=== PATIENT | male | born 1985 | race Caucasian/White ===

== ENCOUNTER 2023-08-24 00:18 | Inpatient (IN) ==
--- NOTE | 2023-08-24 00:40 | Emergency Department Note ---
History of Present Illness General Chief complaint: Chest Pain Stated complaint: CHEST PAIN,BODY STIFFNESS,SEVERE ABDOMINAL/BACK PA Time Seen by Provider: 08/24/23 00:29 History of Present Illness Maximum Pain Intensity: 9 This 37-year-old male who states he is healthy with no active medical problems presents the ER complaining of epigastric abdominal chest pain tonight and earlier. He had meatloaf for dinner. No alcohol or drug use. Patient denies fever, chills, vomiting, diarrhea, trauma to the area. He runs 4-5 times a week. Home Medications Medication Instructions Recorded Confirmed Type No Known Home Medications 08/24/23 08/24/23 History Allergies Allergy/AdvReac Type Severity Reaction Status Date / Time Penicillins Allergy Rash Verified 12/29/22 08:44 Past Med/Surg History Medical History Gynecomastia No significant past medical history Surgical History S/P medial meniscectomy of right knee S/P wisdom tooth extraction Family History Father Hypertension Acid reflux Sister Acid reflux Denies family history of Colon cancer Ovarian cancer Prostate cancer Myocardial infarction Breast cancer Social History Smoking Status: Never smoker Second Hand Exposure: No; Do You Dip or Chew Tobacco: No; Hx Alcohol Use: No Hx Substance Use: No Preferred Language: Serbian Communication Ability: Effective Visual Impairment: No Limitations Hearing Ability: Normal Internet Application Developer Required: No marital status: Current Living Situation: Spouse Current Living Situation Comment: Spouse and daughter current occupational status: employed 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 How many Children do You have: 1 Feels Safe at Home: Yes Childhood Exposure to Second-Hand Smoke: Yes Diet: regular caffeine: No during the past year weight has: remained stable Dental Care, Regularly: Yes Physical Activity Frequency: 5-6 Times per Week Seatbelt Use: always Sunscreen Use: Yes Assistive Devices: Contacts Review of Systems A total of 10 systems reviewed and were otherwise negative Physical Exam Vital Signs Vital Signs - 24 hr 08/24/23 00:23 08/24/23 00:55 08/24/23 00:55 Temperature 36.4 C L Temperature Source Oral Pulse Rate 51 L 48 L Pulse Rhythm Regular Regular Pulse Strength Normal Respiratory Rate 18 18 Respiratory Effort / Characteristics Non-Labored Spontaneous Respiratory Depth Normal Respiratory Pattern Regular Blood Pressure 122/78 Blood Pressure Mean 92 Blood Pressure Position Sitting Pulse Oximetry 97 99 99 Oxygen Delivery Method Room Air Room Air Room Air Oxygen Flow Rate 0 Sepsis Recent Fever Within 48 Hours No Sepsis New/Unexplained Change in Mental Status No Sepsis Action Taken by Nursing No Action Required VITALS: Vitals are noted on the nurse's note and reviewed by myself. Vital signs stable. GENERAL: Pleasant gentleman, in no acute distress, nondiaphoretic, well- developed well-nourished. SKIN: Capillary reflex less than 2 seconds. HEENT: Normocephalic. PERRLA. EOMI. Nares patent. Mucous membranes moist. Neck is supple without nuchal rigidity. HEART: Regular rate and rhythm LUNGS: Clear to auscultation bilaterally without wheezes, rales or rhonchi. No retractions or accessory muscle use. ABDOMEN: Positive bowel sounds x 4. Normal tympanic percussion. Soft, tender epigastric right upper quadrant, without masses or organomegaly. No guarding or rebound tenderness. no CVA tenderness MUSCULOSKELETAL: No gross musculoskeletal defects. NEURO: Patient was alert and oriented to person place and time. No focal neurological deficits. Course Administered Medications Discontinued Medications Sodium Chloride (Nss) 1,000 mls @ 999 mls/hr IV .Q1H1M STA Stop: 08/24/23 01:36 Last Infusion: 08/24/23 02:13 Dose: Infused Documented By: Admin: 08/24/23 00:56 Dose: 999 mls/hr Documented By: SILVIA Famotidine (Pepcid 20mg Iv Push) 20 mg in 5 mls @ 2.5 mls/min IV NOW STA Stop: 08/24/23 00:37 Last Admin: 08/24/23 00:58 Dose: 2.5 mls/min Documented By: SILVIA Acetaminophen (Ofirmev) 1,000 mg in 100 mls @ 400 mls/hr IV NOW STA Stop: 08/24/23 02:47 Last Infusion: 08/24/23 03:07 Dose: Infused Documented By: Admin: 08/24/23 02:47 Dose: 400 mls/hr Documented By: MELLISA Ioversol (Optiray 320 500ml) 100 ml IV ONCE ONE Stop: 08/24/23 02:24 Last Admin: 08/24/23 02:23 Dose: 80 ml Documented By: ZANA Ondansetron HCl (Ondansetron Inj 2 Mg/Ml 2 Ml Vial) 4 mg IV NOW STA Stop: 08/24/23 00:37 Last Admin: 08/24/23 00:57 Dose: 4 mg Documented By: SILVIA Medical Decision Making Medical Records Attestation: I reviewed the patient's medical records. Home Medications Current Medication List: was personally reviewed by me Laboratory Data Attestation: I reviewed the patient's lab results. 08/24/23 00:45 08/24/23 00:45 Lab Results 08/24/23 Range/Units 00:45 WBC 13.95 H (4.8-10.8) K/ul RBC 4.96 (4.70-6.10) M/uL Hgb 15.9 (14.0-18.0) g/dl Hct 44.4 (42.0-52.0) % MCV 89.5 (80.0-100.0) fL MCH 32.1 (25.0-34.0) pg MCHC 35.8 (32.0-36.0) g/dL RDW Std Deviation 40.0 (36.4-46.3) fL RDW Coeff of Мария 12.2 (11.5-14.5) % Plt Count 222 (130-400) K/uL MPV 11.2 (9.4-12.4) fL Immature Gran % (Auto) 0.6 % Neut % (Auto) 70.1 % Lymph % (Auto) 22.4 % Fajardo % (Auto) 5.7 % Eos % (Auto) 0.6 % Baso % (Auto) 0.6 % Neut # (Auto) 9.78 H (1.40-6.50) K/uL Lymph # (Auto) 3.12 (1.20-3.40) K/uL Fajardo # (Auto) 0.80 H (0.11-0.59) K/uL Eos # (Auto) 0.09 (0.00-0.50) K/uL Baso # (Auto) 0.08 (0.00-0.20) K/uL Immature Gran # (Auto) 0.08 (0.01-0.20) K/uL Sodium 140 (136-145) mmol/L Potassium 3.7 (3.5-5.1) mmol/L Chloride 103 (98-107) mmol/L Carbon Dioxide 28 (21-32) mmol/L Anion Gap 9 (3-11) BUN 15 (6-23) mg/dl Creatinine 0.89 (0.6-1.4) mg/dl Est Cr Clr Drug Dosing 148.2 ml/min Est GFR ( Amer) 128.4 ml/min Est GFR (Non-Af Amer) 110.8 ml/min BUN/Creatinine Ratio 16.9 (10-20) Glucose 140 H (70-99(Fasting)) mg/dl Calcium 9.3 (8.6-10.3) mg/dl Total Bilirubin 1.9 H (0.2-1.0) mg/dl AST 22 (13-39) U/L ALT 26 (7-52) U/L Alkaline Phosphatase 56 (34-104) U/L Troponin I High Sens 3.3 (0-20) pg/ml Total Protein 6.4 (6.0-8.3) gm/dl Albumin 4.6 (3.4-5.0) gm/dl Globulin 1.8 L (2.5-4.0) gm/dl Albumin/Globulin Ratio 2.6 H (0.9-2) Lipase 42 (11-82) U/L Imaging Data Attestation: I personally reviewed and interpreted this imaging study as follows: Radiologist's Impression: Gallbladder Ultrasound 08/24/23 00:36 Exam(s): US GALLBLADDER EXAM: US Abdomen Limited, Gallbladder CLINICAL HISTORY: Reason for exam: ruq pain. TECHNIQUE: Real-time ultrasound of the right upper quadrant with image documentation. COMPARISON: None. FINDINGS: Limitations: Exam is limited due to gas artifact in the bowel. Liver: The liver measures 18.1 cm . Gallbladder: Vo sign is indeterminate. The gallbladder wall measures 2.6 mm with focal area revealing thickening of gallbladder wall up to 4.7 mm with area of wall edema . The gallbladder is over distended. No distinct gallstones, sludge or gallbladder polyp. Common bile duct: The common bile duct measures 4.8 mm. No stones. No dilation. Pancreas: The tail and part of the body of the pancreas are obscured. The visualized pancreas is within normal limits. Right kidney: The right kidney reveals no hydronephrosis. IMPRESSION: 1. Over distended gallbladder with focal area of 4.7 mm thickening revealing small amount of edema, with questionable mild wall hyperemia. Cannot exclude acalculous cholecystitis. Clinical correlation recommended and if indicated, follow-up with HIDA scan recommended. 2. The remainder of the right upper quadrant ultrasound unremarkable. Electronically signed by: Fozia Oconnell MD 08/24/23 02:49 AM Abdomen/Pelvis CT 08/24/23 02:00 Exam(s): CT ABDOMEN + PELVIS With Contrast IV Amt: 80 ML OPTIRAY 320 EXAM: CT Abdomen and Pelvis With Intravenous Contrast CLINICAL HISTORY: Reason for exam: mid abd pain. TECHNIQUE: Axial computed tomography images of the abdomen and pelvis with intravenous contrast. CTDI is 26.6 mGy and DLP is 1404.17 mGy-cm. Automated exposure control was utilized for the study. A dose lowering technique was utilized adhering to the principles of ALARA. CONTRAST: Patient received 80 ML OPTIRAY 320 of IV contrast COMPARISON: Ultrasound dated 08/24/2023. FINDINGS: Lung bases: Unremarkable. No mass. No consolidation. ABDOMEN: Liver: Mild periportal edema versus minimal intrahepatic biliary distention. Gallbladder and bile ducts: Slightly over distended gallbladder with question pericholecystic fluid and possible tiny stones. Pancreas: Unremarkable. No mass. No ductal dilation. Spleen: Unremarkable. No splenomegaly. Adrenals: Unremarkable. No mass. Kidneys and ureters: Left upper renal pole simple cyst measuring 2.0 cm. Otherwise normal left kidney. Normal right kidney. No hydronephrosis. Stomach and bowel: Moderate to abundant fecal debris within the right and transverse colon.. The descending colon is incompletely distended with borderline thickening of the wall, cannot exclude a descending colitis. Minimal diverticulosis with no focal diverticulitis. PELVIS: Appendix: No findings to suggest acute appendicitis. Bladder: Unremarkable. No mass. Reproductive: Unremarkable as visualized. ABDOMEN and PELVIS: Intraperitoneal space: Unremarkable. No free air. No significant fluid collection. Bones/joints: No acute fracture. No dislocation. Soft tissues: Question cyst versus fluid versus testis in the upper aspect of the inguinal canal, clinical correlation recommended and if indicated, ultrasound evaluation may help. Vasculature: Normal aorta with no aneurysm or dissection. Lymph nodes: Unremarkable. No enlarged lymph nodes. IMPRESSION: 1. Question minimal periportal edema with possible tiny stones and pericholecystic fluid. Cannot entirely exclude acalculous cholecystitis, as identified on recent ultrasound examination. Clinical correlation recommended and if indicated, follow-up with HIDA scan. 2. Left upper renal pole simple cyst measuring 2 cm with no further follow-up imaging recommended. 3. Borderline mild thickening of the wall of the descending colon which may be due to incomplete distention versus minimal/early colitis. No acute appendicitis or bowel obstruction. Electronically signed by: Fozia Oconnell MD 08/24/23 03:07 AM MDM Narrative Prior records/ancillary studies reviewed. Triage Nursing notes reviewed. Additional history obtained from nursing. The patient's history was concerning for epigastric abdominal pain. Differential diagnosis: Etiologies such as cardiac, appendicitis, diverticulitis, PUD, biliary pathology, UTI, pancreatitis, obstruction, mesenteric ischemia, aortic pathology, infections, inflammatory bowel disease, renal colic, as well as others were entertained. Physical examination findings: As above. ER treatment provided: An order was placed for continuous cardiac monitoring. The monitor shows a rate of 40-80 with a sinus rhythm per my Independent interpretation. IV fluids Pepcid and Zofran were ordered Protonix, Mefoxin and Tylenol ordered On reassessment the patient felt better. Diagnostics interpreted by me: ECG: Ordered for epigastric pain EKG: Normal sinus, no acute ST-T wave changes, rate of 44. Impression sinus bradycardia independently interpreted by myself The labs Independently Interpreted by myself revealed leukocytosis, hyperglycemia that DKA Imaging studies: Chest x-ray with no acute consolidation, pneumothorax or free air per my independent interpretation CT and ultrasound were reviewed and read by radiology as above HEART SCORE: Hx: high/mod/low suspicion: 0 ECG: ST depression/nonspecific changes/normal: 0 Age: Greater than 65/45-64/less than 45: 0 Risk factors: (Hypertension, hyperlipidemia, diabetes, coronary disease, tobacco use, cocaine use): 0 Troponin: Greater than 2 times normal limits/1-2 times normal limits/normal: 0 Total: 0 Consultation: A consultation was placed with the surgical provider. The case was discussed and diagnostics were reviewed. The patient was evaluated in the ER for further treatment. They recommend medical admission Medicine consulted and case was discussed. Patient be admitted to the medical service. Exam and history seem consistent with biliary colic with concerns for acute cholecystitis. Surgery and medicine were consulted. Surgery recommends medicine admission. Medicine will evaluate the patient for possible admission. Patient was medicated as above. Patient is agreeable treatment plan of admission. LFTs are normal. White count was elevated. T. bili was elevated. By the evaluation outlined above emergent etiologies such as appendicitis, diverticulitis, UTI, pancreatitis, obstruction, mesenteric ischemia, aortic pathology, inflammatory bowel disease, renal colic, as well as others were deemed relatively unlikely. The pt informed about the findings as listed above. All questions were answered and pleased with the treatment. The chart was completed utilizing [employer] Speech voice recognition software. Grammatical errors, random word insertions, pronoun errors, and incomplete sentences are an occassional consequence of this system due to software limitations, ambient noise, and hardware issues. Any formal questions or concerns about the content, text, or information contained within the body of this dictation should be directly addressed to the physician senior executive assistant for clarification. Impression & Plan Abdominal pain, acute, Acute hyperglycemia Discharge Plan Visit Data Chief Complaint: Chest Pain Stated Complaint: CHEST PAIN,BODY STIFFNESS,SEVERE ABDOMINAL/BACK PA ED Provider: Rachel Myrick ED Midlevel Provider: Darling Trevino Discharge Problem: Abdominal pain, acute, Acute hyperglycemia Patient Disposition: Being Evaluated by Hospitalist Condition: Good Discharge Instructions Activity Restrictions/Additional Instructions: Your blood sugar is elevated. Follow-up with the family doctor for this for possible diabetes workup. Forms Stand Alone Forms: My [facility] Prescriptions Prescriptions: No Action No Known Home Medications Referrals Referrals: Ghulam Markham, [Primary Care Provider] -
[2023-08-24] MEDS: SODIUM CHLORIDE 0.9% 1,000 ML IV STA (00:56)
[2023-08-24] MEDS: ONDANSETRON INJ 2 MG/ML 2 ML VIAL IV STA (00:57)
[2023-08-24] MEDS: FAMOTIDINE 20MG IV PUSH 20 MG/5 ML SYR IV STA (00:58)
[2023-08-24 01:16] LABS: Basophils # (auto) 0.08 K/uL (0.00-0.20); Basophils % (auto) 0.6 %; Eosinophils # (auto) 0.09 K/uL (0.00-0.50); Eosinophils % (auto) 0.6 %; Hematocrit (blood only) 44.4 % (42.0-52.0); Hemoglobin 15.9 g/dl (14.0-18.0); Immature Granulocytes # (auto) 0.08 K/uL (0.01-0.20); Immature Granulocytes % (auto) 0.6 %; Lymphocytes # (auto) 3.12 K/uL (1.20-3.40); Lymphocytes % (auto) 22.4 %; Mean Corpuscular Hemoglobin 32.1 pg (25.0-34.0); Mean Corpuscular Hgb Conc 35.8 g/dL (32.0-36.0); Mean Corpuscular Volume 89.5 fL (80.0-100.0); Mean Platelet Volume 11.2 fL (9.4-12.4); Monocytes % (auto) 5.7 %; Neutrophils # (auto) 9.78 K/uL (1.40-6.50); Neutrophils % (auto) 70.1 %; Platelet Count 222 K/uL (130-400); RDW Coefficient of Variation 12.2 % (11.5-14.5); Red Blood Count 4.96 M/uL (4.70-6.10); White Blood Count 13.95 K/ul (4.8-10.8)
[2023-08-24 01:32] LABS: Albumin Globulin Ratio 2.6 (0.9-2); Albumin Level 4.6 gm/dl (3.4-5.0); BUN Creatinine Ratio 16.9 (10-20); Bilirubin,Total 1.9 mg/dl (0.2-1.0); Calcium 9.3 mg/dl (8.6-10.3); Creatinine Clr Calc Pharmacy 148.2 ml/min; Est GFR (African American) 128.4 ml/min; Est GFR (Non-African American) 110.8 ml/min; Globulin 1.8 gm/dl (2.5-4.0); Potassium 3.7 mmol/L (3.5-5.1); Total Protein 6.4 gm/dl (6.0-8.3)
[2023-08-24 01:37] LABS: Troponin I High Sensitivity 3.3 pg/ml (0-20)
[2023-08-24] MEDS: OPTIRAY 320 500ml IV ONE (02:23)
[2023-08-24] MEDS: ACETAMINOPHEN 1,000 MG/100 ML VIAL IV STA (02:47)
--- NOTE | 2023-08-24 02:50 | Ultrasound Report ---
Exam(s): US GALLBLADDER EXAM: US Abdomen Limited, Gallbladder CLINICAL HISTORY: Reason for exam: ruq pain. TECHNIQUE: Real-time ultrasound of the right upper quadrant with image documentation. COMPARISON: None. FINDINGS: Limitations: Exam is limited due to gas artifact in the bowel. Liver: The liver measures 18.1 cm . Gallbladder: Vo sign is indeterminate. The gallbladder wall measures 2.6 mm with focal area revealing thickening of gallbladder wall up to 4.7 mm with area of wall edema . The gallbladder is over distended. No distinct gallstones, sludge or gallbladder polyp. Common bile duct: The common bile duct measures 4.8 mm. No stones. No dilation. Pancreas: The tail and part of the body of the pancreas are obscured. The visualized pancreas is within normal limits. Right kidney: The right kidney reveals no hydronephrosis. IMPRESSION: 1. Over distended gallbladder with focal area of 4.7 mm thickening revealing small amount of edema, with questionable mild wall hyperemia. Cannot exclude acalculous cholecystitis. Clinical correlation recommended and if indicated, follow-up with HIDA scan recommended. 2. The remainder of the right upper quadrant ultrasound unremarkable. Electronically signed by: Fozia Oconnell MD 08/24/23 02:49 AM
--- NOTE | 2023-08-24 03:09 | CT Scan Report ---
Exam(s): CT ABDOMEN + PELVIS With Contrast IV Amt: 80 ML OPTIRAY 320 EXAM: CT Abdomen and Pelvis With Intravenous Contrast CLINICAL HISTORY: Reason for exam: mid abd pain. TECHNIQUE: Axial computed tomography images of the abdomen and pelvis with intravenous contrast. CTDI is 26.6 mGy and DLP is 1404.17 mGy-cm. Automated exposure control was utilized for the study. A dose lowering technique was utilized adhering to the principles of ALARA. CONTRAST: Patient received 80 ML OPTIRAY 320 of IV contrast COMPARISON: Ultrasound dated 08/24/2023. FINDINGS: Lung bases: Unremarkable. No mass. No consolidation. ABDOMEN: Liver: Mild periportal edema versus minimal intrahepatic biliary distention. Gallbladder and bile ducts: Slightly over distended gallbladder with question pericholecystic fluid and possible tiny stones. Pancreas: Unremarkable. No mass. No ductal dilation. Spleen: Unremarkable. No splenomegaly. Adrenals: Unremarkable. No mass. Kidneys and ureters: Left upper renal pole simple cyst measuring 2.0 cm. Otherwise normal left kidney. Normal right kidney. No hydronephrosis. Stomach and bowel: Moderate to abundant fecal debris within the right and transverse colon.. The descending colon is incompletely distended with borderline thickening of the wall, cannot exclude a descending colitis. Minimal diverticulosis with no focal diverticulitis. PELVIS: Appendix: No findings to suggest acute appendicitis. Bladder: Unremarkable. No mass. Reproductive: Unremarkable as visualized. ABDOMEN and PELVIS: Intraperitoneal space: Unremarkable. No free air. No significant fluid collection. Bones/joints: No acute fracture. No dislocation. Soft tissues: Question cyst versus fluid versus testis in the upper aspect of the inguinal canal, clinical correlation recommended and if indicated, ultrasound evaluation may help. Vasculature: Normal aorta with no aneurysm or dissection. Lymph nodes: Unremarkable. No enlarged lymph nodes. IMPRESSION: 1. Question minimal periportal edema with possible tiny stones and pericholecystic fluid. Cannot entirely exclude acalculous cholecystitis, as identified on recent ultrasound examination. Clinical correlation recommended and if indicated, follow-up with HIDA scan. 2. Left upper renal pole simple cyst measuring 2 cm with no further follow-up imaging recommended. 3. Borderline mild thickening of the wall of the descending colon which may be due to incomplete distention versus minimal/early colitis. No acute appendicitis or bowel obstruction. Electronically signed by: Fozia Oconnell MD 08/24/23 03:07 AM
--- NOTE | 2023-08-24 03:18 | Surgery Consultation ---
Date of Consultation August 24, 2023 Assessment & Plan (1) Abdominal pain, acute: I discussed with the treating clinician the emergency department. She is having the patient admitted on the hospitalist service. The patient's labs and imaging were reviewed and we recommend proceeding as follows: There is some evidence that patient has cholecystitis on ultrasound as he does have some thickening of the gallbladder wall and distention of his gallbladder. However, he does not have any gallstones and at the time of my exam the patient's abdominal exam was quite benign. Concerning analgesics received in the emergency department the patient is only received intravenous acetaminophen. We will obtain a HIDA scan to further evaluate to see if patient has cholecystitis. Will also repeat the patient's laboratories as he does have an elevated bilirubin (although his LFTs are normal) Would recommend to continue analgesics as needed Would recommend continuing antiemetics as needed Keep patient n.p.o. Provide IV fluid for hydration The patient has received cefoxitin in the emergency department for antibiotic coverage which may continue Additional recommendations to be forthcoming based on his clinical course as unfolds and pending HIDA scan Would recommend using only SCDs for DVT prevention, no chemical means until it is ascertained whether or not the patient requires any procedural/surgical intervention Supervising Physician Co-Signing Physician Notes Patient seen and examined, labs and imaging reviewed, agree with above. Admitted with postprandial right upper quadrant pain, CT and ultrasound concerni ng for cholecystitis but no obvious stones. On exam afebrile, tender to palpation in right upper quadrant. WBC downtrending but still elevated. LFTs normal. Ultrasound and CT scan personally viewed and interpreted and agree with the assessment of possible small stones or sludge with some gallbladder wall thickening and pericholecystic edema consistent with likely cholecystitis. Discussed his options to include HIDA scan versus cholecystectomy, after discussion patient elects for cholecystectomy Plan for robotic cholecystectomy possible cholangiogram Risk of the procedure were discussed to include but not limited to bleeding, infection, retained stone, bile leak, conversion open, damage surrounding structures, need for future more extensive surgery, failure to treat symptoms, and the risk of anesthesia Potential discharge this afternoon Activity restriction, wound care instructions, return precautions Patient follow-up with me in general surgery clinic in 2 weeks History of Present Illness Reason for Consultation: Abdominal pain History of Present Illness This is a 37-year-old male who presented the emergency department secondary to abdominal pain. Patient notes on the evening of 08/22/2023 he developed some abdominal pain greatest in the epigastric area and to a lesser degree the right upper quadrant approximate hour after eating. He said that the pain subsided. He notes he had recurrence of pain approximately 1 hour after eating meatloaf on 08/23/2023. He notes that the pain was again in the epigastric area in the right upper quadrant. He denies any nausea or vomiting and he also denies any fevers, shakes, or chills. He does not report any radiation or modifying factors to the pain other than it was relieved with medicines administered in the emergency department. Patient notes he has never had abdominal surgery before. The patient also reports that he was told when he was in college he had a "gallbladder attack" but he could not provide any further details. Since arrival to hospital patient has had labs and imaging which independently reviewed. Chest x-ray did not appear to have any pneumonia or pleural effusions. Patient also had a gallbladder ultrasound that showed patient's gallbladder was distended with some gallbladder wall thickening and a small amount of edema. Of note, the gallbladder wall measured approximate 2.6 mm but there was a focal area of gallbladder wall thickening up to 4.7 mm. No gallstones were noted however. A CT scan of the abdomen pelvis was also performed that showed some questionable periportal edema and a questionable tiny gallstones and pericholecystic fluid. Interpreting radiologist could not exclude a calculus cholecystitis. There is also some concern that patient may have had borderline thickening of the descending colon potentially representing early colitis. Labs include a CBC her white blood cell count was elevated 13.9. Hemoglobin and hematocrit along with the platelet count were normal. Chemistry profile showed sodium and potassium along with the BUN and creatinine were normal. He did have an elevated total bilirubin at 1.9. At the time of my interview the patient was resting comfortably in bed and he was in no distress. Allergies Allergy/AdvReac Type Severity Reaction Status Date / Time Penicillins Allergy Rash Verified 12/29/22 08:44 Home Medications Medication Instructions Recorded Confirmed Type No Known Home Medications 08/24/23 08/24/23 History Patient History Medical History Gynecomastia No significant past medical history Surgical History S/P medial meniscectomy of right knee S/P wisdom tooth extraction Family History Father Hypertension Acid reflux Sister Acid reflux Denies family history of Colon cancer Ovarian cancer Prostate cancer Myocardial infarction Breast cancer Social History Smoking Status: Never smoker Second Hand Exposure: No; Do You Dip or Chew Tobacco: No; Hx Alcohol Use: No Hx Substance Use: No Preferred Language: Lao Communication Ability: Effective Visual Impairment: No Limitations Hearing Ability: Normal Neuropsychology Director Required: No Beliefs That Will Affect Care: None marital status: Current Living Situation: Family Current Living Situation Comment: lives at home with and children current occupational status: employed 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 [employer] How many Children do You have: 1 Other Information That Helps Us Care for You: No Feels Safe at Home: Yes Safety Concerns: Feels Safe At This Time Childhood Exposure to Second-Hand Smoke: Yes Diet: regular caffeine: No during the past year weight has: remained stable Dental Care, Regularly: Yes Physical Activity Frequency: 5-6 Times per Week Seatbelt Use: always Sunscreen Use: Yes Assistive Devices: None Review of Systems Constitutional: no fever and no chills Ear, Nose, Mouth, Throat: no ear pain Respiratory: no cough and no dyspnea Cardiovascular: no chest pain Gastrointestinal: as per Subjective / HPI Genitourinary: no dysuria Musculoskeletal: no back pain Integumentary: no rash Neurologic: no localized weakness Physical Exam 2 Constitutional: WD/WN, vitals as above Eyes: + anicteric sclerae ENMT: Ears: no hearing impairment No sublingual jaundice noted Neck: trachea midline Respiratory: normal respiratory effort; no respiratory distress and no labored breathing Cardiovascular: Rate/Rhythm: regular rate and regular rhythm Gastrointestinal (Abdomen): At the time of my exam patient's abdomen was noted to be soft, nonrigid, nondistended. There is no rebound tenderness or guarding. Patient only had slight tenderness with palpation in the epigastric and right upper quadrant. Musculoskeletal: No calf tenderness Skin: no jaundice Neurologic: moves all extremities Psychiatric: A+Ox3, euthymic affect Results & Data Vital Signs (Past 12 Hours) Vital Signs Temp Pulse Resp BP Pulse Ox O2 Del Method O2 Flow Rate 08/24/23 00:55 48 L 18 99 Room Air 08/24/23 00:55 99 Room Air 0 08/24/23 00:23 36.4 C L 51 L 18 122/78 97 Room Air PG Care Time/CCT Total # of Minutes Spent Total Time Spent with Patient: Total time spent is greater than 50% in coordination of care (as documented) at patient's floor/unit and/or counseling patient: Coding Level of Care Code 96587 IN/OBS CONSULT LVL 5,80M Diagnoses Abdominal pain, acute R10.9
--- NOTE | 2023-08-24 03:26 | History & Physical Report ---
Date of Service August 24, 2023 Assessment & Plan (1) Abdominal pain, acute: Plan Abdominal Pain -Acute abdominal pain at RUQ and radiating to back -CT A/P, gallbladder US: Over distended gallbladder with focal area of 4.7 mm thickening revealing small amount of edema, with questionable mild wall hyperemia. Cannot exclude acalculous cholecystitis -Will keep NPO while awaiting further evaluation for possible procedure -Consulted general surgery, appreciate recommendations -Anticipate HIDA scan today -Received Cefoxitin in ED, will continue with Ceftriaxone daily. Will monitor daily CBC, metabolic panel -Tylenol PRN for pain, Zofran ordered PRN for nausea Admit to med/surg VTE Prophylaxis: SCDs Diet: NPO, maintenance fluids NSS @125mL/h Code Status: Full Code History of Present Illness Primary Care Provider: Ghulam Markham DO Miguel Mann is a 37 year-old male without significant past medical history who presented to the ED due to concern of abdominal pain which was radiating to his back. He notes that symptoms started that evening after eating and the abdominal pain gradually worsened until it radiated to his back as well. He notes that he did have similar pain related to his gallbladder back in college but otherwise has been healthy and not had any concerns. He denies chest pain, shortness of breath, changes in urinary patterns, dizziness. ED Course: -CT A/P, gallbladder ultrasound, chest x-ray -CBC, CMP Allergies Allergy/AdvReac Type Severity Reaction Status Date / Time Penicillins Allergy Rash Verified 12/29/22 08:44 Home Medications Medication Instructions Recorded Confirmed Type oxycodone 5 mg tablet 5 - 10 mg (1 - 2 x 5 mg) PO 08/24/23 Rx .[id number] PRN pain #15 tabs Past Med/Surg History Medical History Gynecomastia No significant past medical history Surgical History S/P medial meniscectomy of right knee S/P wisdom tooth extraction Family History Father Hypertension Acid reflux Sister Acid reflux Denies family history of Colon cancer Ovarian cancer Prostate cancer Myocardial infarction Breast cancer Social History Smoking Status: Never smoker Second Hand Exposure: No; Do You Dip or Chew Tobacco: No; Hx Alcohol Use: No Hx Substance Use: No Preferred Language: Cypriot Communication Ability: Effective Visual Impairment: No Limitations Hearing Ability: Normal Data Processing Manager Required: No Beliefs That Will Affect Care: None marital status: Current Living Situation: Family Current Living Situation Comment: lives at home with and children current occupational status: employed current occupation: [employer] How many Children do You have: 1 Feels Safe at Home: Yes Childhood Exposure to Second-Hand Smoke: Yes Diet: regular caffeine: No during the past year weight has: remained stable Dental Care, Regularly: Yes Physical Activity Frequency: 5-6 Times per Week Seatbelt Use: always Sunscreen Use: Yes Assistive Devices: None Review of Systems Review of Systems: As per above Physical Exam Constitutional: WD/WN, vitals as above Eyes: + anicteric sclerae; no conjunctival abn ormality ENMT: Ears: no external ear abnormality Nose: no external nose abnormality Moist mucous membranes Respiratory: normal respiratory effort, lungs clear to auscultation Cardiovascular: Rate/Rhythm: regular rate and regular rhythm Extremities: no edema Gastrointestinal (Abdomen): RUQ tenderness. Abdomen soft, nondistended. + bowel sounds Skin: no rashes, warm and dry Psychiatric: A+Ox3, euthymic affect Results & Data Results & Data Vital Signs (Past 12 Hours) Vital Signs Temp Pulse Resp BP Pulse Ox O2 Del Method O2 Flow Rate 08/24/23 00:55 48 L 18 99 Room Air 08/24/23 00:55 99 Room Air 0 08/24/23 00:23 36.4 C L 51 L 18 122/78 97 Room Air Diagnostic Findings Gallbladder Ultrasound 08/24/23 00:36 Exam(s): US GALLBLADDER EXAM: US Abdomen Limited, Gallbladder CLINICAL HISTORY: Reason for exam: ruq pain. TECHNIQUE: Real-time ultrasound of the right upper quadrant with image documentation. COMPARISON: None. FINDINGS: Limitations: Exam is limited due to gas artifact in the bowel. Liver: The liver measures 18.1 cm . Gallbladder: Vo sign is indeterminate. The gallbladder wall measures 2.6 mm with focal area revealing thickening of gallbladder wall up to 4.7 mm with area of wall edema . The gallbladder is over distended. No distinct gallstones, sludge or gallbladder polyp. Common bile duct: The common bile duct measures 4.8 mm. No stones. No dilation. Pancreas: The tail and part of the body of the pancreas are obscured. The visualized pancreas is within normal limits. Right kidney: The right kidney reveals no hydronephrosis. IMPRESSION: 1. Over distended gallbladder with focal area of 4.7 mm thickening revealing small amount of edema, with questionable mild wall hyperemia. Cannot exclude acalculous cholecystitis. Clinical correlation recommended and if indicated, follow-up with HIDA scan recommended. 2. The remainder of the right upper quadrant ultrasound unremarkable. Electronically signed by: Fozia Oconnell MD 08/24/23 02:49 AM Abdomen/Pelvis CT 08/24/23 02:00 Exam(s): CT ABDOMEN + PELVIS With Contrast IV Amt: 80 ML OPTIRAY 320 EXAM: CT Abdomen and Pelvis With Intravenous Contrast CLINICAL HISTORY: Reason for exam: mid abd pain. TECHNIQUE: Axial computed tomography images of the abdomen and pelvis with intravenous contrast. CTDI is 26.6 mGy and DLP is 1404.17 mGy-cm. Automated exposure control was utilized for the study. A dose lowering technique was utilized adhering to the principles of ALARA. CONTRAST: Patient received 80 ML OPTIRAY 320 of IV contrast COMPARISON: Ultrasound dated 08/24/2023. FINDINGS: Lung bases: Unremarkable. No mass. No consolidation. ABDOMEN: Liver: Mild periportal edema versus minimal intrahepatic biliary distention. Gallbladder and bile ducts: Slightly over distended gallbladder with question pericholecystic fluid and possible tiny stones. Pancreas: Unremarkable. No mass. No ductal dilation. Spleen: Unremarkable. No splenomegaly. Adrenals: Unremarkable. No mass. Kidneys and ureters: Left upper renal pole simple cyst measuring 2.0 cm. Otherwise normal left kidney. Normal right kidney. No hydronephrosis. Stomach and bowel: Moderate to abundant fecal debris within the right and transverse colon.. The descending colon is incompletely distended with borderline thickening of the wall, cannot exclude a descending colitis. Minimal diverticulosis with no focal diverticulitis. PELVIS: Appendix: No findings to suggest acute appendicitis. Bladder: Unremarkable. No mass. Reproductive: Unremarkable as visualized. ABDOMEN and PELVIS: Intraperitoneal space: Unremarkable. No free air. No significant fluid collection. Bones/joints: No acute fracture. No dislocation. Soft tissues: Question cyst versus fluid versus testis in the upper aspect of the inguinal canal, clinical correlation recommended and if indicated, ultrasound evaluation may help. Vasculature: Normal aorta with no aneurysm or dissection. Lymph nodes: Unremarkable. No enlarged lymph nodes. IMPRESSION: 1. Question minimal periportal edema with possible tiny stones and pericholecystic fluid. Cannot entirely exclude acalculous cholecystitis, as identified on recent ultrasound examination. Clinical correlation recommended and if indicated, follow-up with HIDA scan. 2. Left upper renal pole simple cyst measuring 2 cm with no further follow-up imaging recommended. 3. Borderline mild thickening of the wall of the descending colon which may be due to incomplete distention versus minimal/early colitis. No acute appendicitis or bowel obstruction. Electronically signed by: Fozia Oconnell MD 08/24/23 03:07 AM Supervising Physician Co-Signing Physician Notes Attending addendum: I have physically seen this patient, have supervised the medical residents activities, and agree with the H&P unless as otherwise noted. Assessment and Plan: Acalculus cholecystitis- Patient's symptoms, examination and imaging consistent with this diagnosis Admit to [facility] N.p.o. Order HIDA scan with gallbladder ejection fraction Given cefoxitin in ED Ceftriaxone 2 g IV daily Follow CBC with differential and chemistry profile Acetaminophen 1 g IV every 6 hours as needed for mild pain or fever Zofran 4 mg IV every 6 hours as needed Status post 1 L normal saline in ED NSS at 125 MLS per hour General surgery consulted and has already seen the patient Resident Activity Tracking Resident Involvement: Resident Care Provided Care Provided: Adult [facility] Medicine
[2023-08-24] MEDS: PANTOprazole 40 MG in SYRINGE 0 ML IV ONE (04:21)
[2023-08-24] MEDS: cefOXitin 2,000 MG/60 ML BAG IV STA (04:23)
[2023-08-24] MEDS ORDERED: ACETAMINOPHEN 325 MG TAB PO PRN (05:50)
[2023-08-24] MEDS ORDERED: ONDANSETRON INJ 2 MG/ML 2 ML VIAL IV PRN (05:50)
[2023-08-24] MEDS: SODIUM CHLORIDE 0.9% 1,000 ML IV SCH (05:58)
[2023-08-24 06:40] LABS: Basophils # (auto) 0.05 K/uL (0.00-0.20); Basophils % (auto) 0.5 %; Eosinophils # (auto) 0.01 K/uL (0.00-0.50); Eosinophils % (auto) 0.1 %; Hematocrit (blood only) 40.7 % (42.0-52.0); Hemoglobin 14.8 g/dl (14.0-18.0); Immature Granulocytes # (auto) 0.03 K/uL (0.01-0.20); Immature Granulocytes % (auto) 0.3 %; Lymphocytes # (auto) 1.84 K/uL (1.20-3.40); Lymphocytes % (auto) 16.8 %; Mean Corpuscular Hemoglobin 32.3 pg (25.0-34.0); Mean Corpuscular Hgb Conc 36.4 g/dL (32.0-36.0); Mean Corpuscular Volume 88.9 fL (80.0-100.0); Mean Platelet Volume 11.3 fL (9.4-12.4); Monocytes % (auto) 6.4 %; Neutrophils % (auto) 75.9 %; Platelet Count 206 K/uL (130-400); RDW Coefficient of Variation 12.4 % (11.5-14.5); RDW Standard Deviation 39.9 fL (36.4-46.3); Red Blood Count 4.58 M/uL (4.70-6.10); White Blood Count 10.93 K/ul (4.8-10.8)
[2023-08-24 06:53] LABS: Albumin Globulin Ratio 2.4 (0.9-2); Albumin Level 4.1 gm/dl (3.4-5.0); BUN Creatinine Ratio 16.3 (10-20); Bilirubin,Total 1.4 mg/dl (0.2-1.0); Calcium 8.8 mg/dl (8.6-10.3); Creatinine Clr Calc Pharmacy 165.4 ml/min; Est GFR (African American) 134.1 ml/min; Est GFR (Non-African American) 115.7 ml/min; Globulin 1.7 gm/dl (2.5-4.0); Potassium 4.3 mmol/L (3.5-5.1); Total Protein 5.8 gm/dl (6.0-8.3)
[2023-08-24 07:12] LABS: Prothrombin Time 11.1 Seconds (9.0-12.0)
--- NOTE | 2023-08-24 07:57 | XRay Report ---
XR chest 1V portable HISTORY: Right upper quadrant pain. Chest pain, nonspecific COMPARISON: None. FINDINGS: The lungs are clear. Cardiac silhouette is normal in size. No pleural effusions. No pneumot horax. IMPRESSION: No acute process. ACT 112: Negative or not required by law. Electronically signed by: John Choe M.D. 08/24/2023 7:56 AM
--- NOTE | 2023-08-24 09:36 | Surgery Progress Note ---
Date of Service August 24, 2023 Assessment & Plan (1) Abdominal pain, acute: Plan: Patient here with epigastric/RUQ abdominal pain 2x over the last 24 hours after eating PB crackers and meatloaf RUQ US and CT scans show the possibility of small gallstones within a distended gallbladder with perichole fluid and edema WBC 10.9. Tb 1.4 On exam patient is resting comfortably and feeling better, but still with discomfort to palpation in epigastric/RUQ regions Discussed options with patient, watchful waiting and initiate diet, obtain HIDA scan, vs surgical intervention given likelihood the gallbladder is causing his symptomatology After deliberation the patient opted for surgical intervention We will book for robotic kari today with dr. dawn who has obtained consent Admission and Anticipated Discharge Date Admission Date: August 24, 2023 Subjective Patient feeling better this AM, but endorses mild discomfort in the upper abdomen with movement. No nausea/vomiting. Physical Exam Physical Exam: awake/alert no distress Gastrointestinal (Abdomen): Inspection/Auscultation: abdomen not distended Percussion/Palpation: + abdomen tender (mild discomfort in the epigastric region) and abdomen soft Results & Data Vital Signs (Past 12 Hours) Vital Signs Temp Pulse Pulse Pulse Resp BP BP 08/24/23 07:47 98.3 F 62 16 140/71 08/24/23 06:09 97.9 F 72 18 146/84 H 08/24/23 00:55 48 L 18 08/24/23 00:55 08/24/23 00:23 97.5 F L 51 L 18 122/78 08/24/23 00:19 62 18 114/82 Pulse Ox O2 Del Method O2 Flow Rate 08/24/23 07:47 99 Room Air 08/24/23 06:09 97 Room Air 08/24/23 00:55 99 Room Air 08/24/23 00:55 99 Room Air 0 08/24/23 00:23 97 Room Air 08/24/23 00:19 99 Room Air PG Care Time/CCT Total # of Minutes Spent Total Time Spent with Patient: Total time spent is greater than 50% in coordination of care (as documented) at patient's floor/unit and/or counseling patient: Coding Level of Care Code 16302 SUB INP/OBS CARE 1/25MIN Diagnoses Abdominal pain, acute R10.9
[2023-08-24] MEDS ORDERED: LIDOCAINE 2% 2 ML VIAL/AMP(20MG/ML) INFIL ONE (09:43)
[2023-08-24] MEDS ORDERED: PROPOFOL IV EMULSION 10 MG/ML 20 ML VIAL IV ONE (09:43)
[2023-08-24] MEDS ORDERED: ONDANSETRON INJ 2 MG/ML 2 ML VIAL ONE (09:43)
[2023-08-24] MEDS ORDERED: DEXAMETHASONE SOD INJ 4 MG/ML VIAL ONE (09:43)
[2023-08-24] MEDS ORDERED: ROCURONIUM BROMIDE 10 MG/ML 5 ML VIAL IV ONE ×2 (09:43→11:16)
[2023-08-24] MEDS ORDERED: SUGAMMADEX SODIUM 200 MG/2 ML VIAL IV ONE (09:44)
[2023-08-24] MEDS ORDERED: fentaNYL citrate PF 100 MCG/2 ML VIAL ONE ×3 (09:44→12:11)
[2023-08-24] MEDS ORDERED: MIDAZOLAM HCL 1 MG/ML 2ML VIAL ONE (09:44)
--- NOTE | 2023-08-24 10:16 | History & Physical Bridge Note ---
Date of Service August 24, 2023 History & Physical Bridge Note I have examined the patient, reviewed the History & Physical and in the interval since the performance of the History & Physical I have noted the following changes of clinical significance: no changes noted
[2023-08-24] MEDS: LACTATED RINGER'S 1,000 ML IV SCH (10:21)
[2023-08-24] MEDS: INDOCYANINE GREEN 25 MG VIAL INJ ONE (10:25)
--- NOTE | 2023-08-24 10:26 | Anesthesiology Consultation ---
Date of Service August 24, 2023 Assessment & Plan Chart Review Chart Review: Acceptable Risk for Surgery Consults Requested none ASA ASA2 Proposed Anesthesia Anesthesia Type: General Risk / Benefits Reviewed With: PT / POA / Parent / Guardian, Accepts Plan and Informed Consent Obtained History Surgery Operation Date: 08/24/23 10:35 Proposed Procedures p Robotic Laparoscopic Cholecystectomy - Raul Grullon DO, FACS Height/Weight Height: 6 ft 2 in Weight: 103.5 kg Allergies Allergy/AdvReac Type Severity Reaction Status Date / Time Penicillins Allergy Rash Verified 12/29/22 08:44 Medications Home Medications Medication Instructions Recorded Confirmed Last Taken No Known Home Medications 08/24/23 08/24/23 Unknown Active Medications Generic Name Dose Route Start Last Admin Trade Name Freq PRN Reason Stop Dose Admin Sodium Chloride 1,000 mls @ 125 mls/hr 08/24/23 04:45 08/24/23 05:58 Nss IV 09/23/23 04:44 125 mls/hr .Q8H ALON Administration Lactated Ringer's 1,000 mls @ 15 mls/hr 08/24/23 10:15 08/24/23 10:21 Lr IV 09/23/23 10:14 15 mls/hr .Q24H ALON Administration NPO Date Last Intake of Fluids: 08/23/23 Time Last Intake of Fluids: 23:00 Date Last Intake of Solids: 08/23/23 Time Last Intake of Solids: 20:00 Past Medical History Medical History Gynecomastia No significant past medical history Exercise / Class Metabolic Activity II 4-5 Yardwork/Stairs/Walk up hill Past Family History Family History Father Hypertension Acid reflux Sister Acid reflux Denies family history of Colon cancer Ovarian cancer Prostate cancer Myocardial infarction Breast cancer Past Surgical History Surgical History S/P medial meniscectomy of right knee S/P wisdom tooth extraction Past Anesthesia History No Hx of Anesthesia Complications and No Family Hx of Anesthesia Complications History of PONV No Hx of PONV and No Hx of Motion Sickness Social History Smoking Status: Never smoker Do You Dip or Chew Tobacco: No Hx Alcohol Use: No Hx Substance Use: No Physical Exam Vital Signs Last Vital Signs Temp 98.2 F 08/24/23 10:17 Pulse 75 08/24/23 10:17 Resp 20 08/24/23 10:17 BP 150/95 H 08/24/23 10:17 Pulse Ox 97 08/24/23 10:17 O2 Del Method Room Air 08/24/23 10:17 O2 Flow Rate 0 08/24/23 00:55 ENMT Mouth: no dentition abnormality Thyromental Distance: > or= 3.5 Finger Breadths Mallampati Class: II Neck normal visual inspection Respiratory normal respiratory effort Auscultation: lungs clear to auscultation bilaterally Cardiovascular Rate/Rhythm: regular rate and regular rhythm Testing Laboratory Results 08/24/23 06:11 08/24/23 06:11 PT 11.1 Seconds (9.0-12.0) 08/24/23 06:11 INR 1.0 (0.9-1.1) 08/24/23 06:11
[2023-08-24] MEDS ORDERED: ePHEDrine sulfate 50 MG/ML AMP IV PRN (10:28)
[2023-08-24] MEDS ORDERED: ATROPINE SULFATE 0.1 MG/ML 10ML SYR IV PRN (10:28)
[2023-08-24] MEDS: cefTRIAXone SODIUM 2,000 MG in DEXTROSE 5 % MINI-B 50 ML IV SCH (10:43)
--- NOTE | 2023-08-24 11:06 | Electrocardiogram Report ---
Test Reason : Blood Pressure : / mmHG Vent. Rate : 044 BPM Atrial Rate : 044 BPM P-R Int : 242 ms QRS Dur : 104 ms QT Int : 436 ms P-R-T Axes : 074 073 054 degrees QTc Int : 372 ms Marked sinus bradycardia with 1st degree A-V block Incomplete right bundle branch block Abnormal ECG No previous ECGs available Confirmed by Juan Pablo Avilez ([id number]) on 08/24/2023 11:06:16 AM Referred By: REFERRED SELF Confirmed By:Juan Pablo Avilez
[2023-08-24] MEDS ORDERED: KETOROLAC 30 MG/ML VIAL ONE (11:12)
[2023-08-24] MEDS ORDERED: hydrALAZINE HCL 20 MG/ML VIAL ONE (11:26)
--- NOTE | 2023-08-24 11:58 | Operative Report ---
PG Post Operative Report Pre & Post Diagnosis Operation Date: 08/24/23 10:35 Pre-Op Diagnosis: Cholecystitis Post-Op Diagnosis: Cholecystitis I identified the patient and participated in the time-out.: Yes Procedure Operation Date: 08/24/23 10:35 Actual Procedures p Robotic Laparoscopic Cholecystectomy(Not Applicable) - Raul Grullon DO, FACS Surgeon Raul Grullon DO, FACS Emr Implementation Specialist [place] Brink Estimated Blood Loss 5 Findings Consistent with Post-Op Diagnosis Distended and acutely inflamed gallbladder. Cystic duct and artery doubly clipped and divided. Good hemostasis Specimens Gallbladder Anesthesia Type General Complications none Disposition Accompanied Patient To Recovery: No Disposition: Recovery Room Indications 37-year-old male presented with signs and symptoms suspicious for cholecystitis, but no evidence of cholelithiasis on imaging. After discussion of his options he elected for robotic cholecystectomy. The risks of the procedure were discussed, all questions were answered, and the patient agreed to proceed with surgery as planned. Description of Procedure The patient was properly identified, consented, and taken to the operating room where he was placed in the supine position. 2.5 mg of indocyanine green were administered IV approximately 45 min prior to the surgery. General endotracheal anesthesia was induced. SCDs and a safety belt were placed. Preoperative antibiotics were administered. The patient's abdomen was prepped and draped in the standard sterile fashion. A surgical timeout was performed and all parties were in agreement that this was the correct patient and procedure to be performed and we continued as planned. An incision was made just above the umbilicus and to the left of midline. Veress needle was inserted and saline drop test confirmed entry to the abdomen. The abdomen was insufflated with carbon dioxide which the patient tolerated incident. Veress needle was removed and the abdomen is entered using the Optiview technique and a 5 mm camera. The introducer was removed and the abdomen inspected. No damage from initial trocar placement or Veress needle placement was identified. There were no significant abnormalities to the 4 quadrants of the abdomen. 8 mm robotic ports were then placed on the left and right. An additional 5 mm ophthalmology assistant port was placed in the lateral right subcostal position. The patient was placed in reverse Trendelenburg position and rotated towards the left. The robot was then docked and the camera and robotic instruments were inserted. The gallbladder was distended and appeared to be acutely inflamed. The dome of the gallbladder was grasped by the ophthalmology assistant and retracted towards the left upper quadrant and the infundibulum was retracted toward the right lower quadrant revealing Calot's triangle. Peritoneal attachments were taken down with electrocautery and blunt dissection. The cystic duct and artery were circumferentially dissected. A window of safety was obtained showing the cystic duct entering the gallbladder with no aberrant structures noted. We were able to identify the cystic duct utilizing the ICG. The cystic duct and artery were doubly clipped and divided. The gallbladder was then lifted off the gallbladder fossa with electrocautery. A small amount of bile was spilled during the p rocedure but no stones. The right upper quadrant was irrigated and hemostasis was found to be good. The gallbladder was placed in an Endo Catch bag and removed through the one of the port sites. The port site fascia was closed with a 0 Vicryl suture utilizing the Troy-Srini device. The instruments were removed and the robot was undocked. The trochars were removed and the abdomen was allowed to collapse. The skin of all ports was closed with 4-0 Monocryl subcuticular sutures. Dermabond was placed over the wounds. The patient was extubated in the operating room and taken to the PACU where he recovered without apparent incident. All sponge, instrument and needle counts were correct at the conclusion of the procedure. The patient tolerated the procedure well. The physician's ophthalmology assistant was present and scrubbed for the entirety of the case and was essential in positioning the patient, prepping and draping, retraction and exposure, driving the laparoscope, exchange of the robotic instruments removal of the gallbladder, closure of the incisions, and placement of the dressings. I attest to the content of the Intraoperative Record and any orders documented therein. Any exceptions are noted below.
[2023-08-24] MEDS: BUPIVACAINE 0.5 % 5 MG/1 ML MPF 30ML VIAL ONE (12:03)
[2023-08-24] MEDS: ONDANSETRON INJ 2 MG/ML 2 ML VIAL IV PRN (12:27)
[2023-08-24] MEDS: fentaNYL citrate PF 100 MCG/2 ML VIAL IV PRN (12:28)
[2023-08-24] MEDS ORDERED: MoRPHine SULFATE 4 MG/ML 1 ML CARP\\VIAL IV PRN (12:54)
[2023-08-24] MEDS ORDERED: oxyCODONE HCL IR 5 MG TAB (IMMEDIATE RELEASE) PO PRN (12:54)
[2023-08-24] MEDS ORDERED: MoRPHine SULFATE 2 MG/ML CARP IV PRN (12:54)
[2023-08-24 13:12] VITALS: TEMP 97.9
[2023-08-24 13:30] VITALS: RESP 16; O2SAT 96
[2023-08-24 14:02] VITALS: BP 107/82; PULSE 85
[2023-08-24] MEDS: oxyCODONE HCL IR 5 MG TAB (IMMEDIATE RELEASE) PO PRN (14:35)
--- NOTE | 2023-08-24 15:10 | Discharge Summary ---
Date of Service August 24, 2023 Admission HPI Per Admitting Provider Miguel Mann is a 37 year-old male without significant past medical history who presented to the ED due to concern of abdominal pain which was radiating to his back. He notes that symptoms started that evening after eating and the abdominal pain gradually worsened until it radiated to his back as well. He notes that he did have similar pain related to his gallbladder back in college but otherwise has been healthy and not had any concerns. He denies chest pain, shortness of breath, changes in urinary patterns, dizziness. ED Course: -CT A/P, gallbladder ultrasound, chest x-ray -CBC, CMP Principal Diagnosis Acute cholecystitis status post laparoscopic cholecystectomy Discharge Exam General: Awake, conversant Heart: S1, S2/regular rate and rhythm, no murmur rubs or gallops Lungs: Clear to auscultation bilaterally. Normal effort Abdomen: Soft/nontender/nondistended. No hepatosplenomegaly Extremities: No clubbing/cyanosis. No edema Behavior: Appropriate, cooperative Discharge Data Allergies Allergy/AdvReac Type Severity Reaction Status Date / Time Penicillins Allergy Rash Verified 12/29/22 08:44 Consultations 08/24/23 03:00 ED Decision to Admit Stat 08/24/23 03:26 Consult General Surgery Stat Procedures Performed Operation Date: 08/24/23 10:35 Actual Procedures p Robotic Laparoscopic Cholecystectomy(Not Applicable) - Raul Grullon DO, FACS Ordered Studies 08/24/23 00:36 US gallbladder Stat 08/24/23 02:00 CT abd pelvis IV con only Stat Hospital Course (1) Abdominal pain, acute: Patient presented with acute abdominal pain at the right upper quadrant radiating to his back. CT abdomen and pelvis as well as ultrasound gallbladder showed findings suggestive of gallbladder wall edema suggesting acalculus cholecystitis. General surgery was consulted. They were concerned about small gallstones and distended gallbladder. The decision was made to take the patient to the OR for laparoscopic cholecystectomy. It was completed today by Dr. Grullon. Postsurgically, the patient is doing well. Pain is controlled. He has been cleared for discharge by the surgery team. The patient wishes to go home today. Surgery team ordered some oxycodone for him to go home with. (2) Acute hyperglycemia: Most likely stress related. This will need to be pursued outpatient Plan Discharge to home today Total Time Total Time Spent Total Time Spent (In Minutes): 35 Discharge Plan Discharge Items Patient Disposition: Home - Self-Care Reason For Visit: ABDOMINAL PAIN Discharge Diagnosis: Acute cholecystitis status post laparoscopic cholecystectomy Condition on Discharge: Good Activity: As commented below Lifting: No more than 10 pounds Bathing Comment: you can shower. no pool or bath for 2 weeks Exercise/Sports: Wait until after follow-up appointment Driving/Machine Use: no driving while taking narcotic pain medication Non-emergency contact: Surgeon Call non-emergency contact if: you have any medication questions, your symptoms worsen, your pain is not controlled, your temperature is above 101, your wound has increased redness, your wound has increased drainage and your wound pain has increased Follow-up/Referrals: Raul Grullon DO, FACS [Physician] - (call office for a follow up in 2 weeks ) Ghulam Markham DO [Primary Care Provider] - Diet: Regular Addtl Attending Provider Instructions: You have surgical glue called dermabond on your surgical site incisions. You may shower with this on. This will tend to come off within a couple of weeks. Do not pick at it. You may purchase Tylenol and or Ibuprofen over the counter if needed for addition pain control over the next few days. Take per manufacturers instructions, Do not take more than 3 grams of Tylenol in 24 hours. Advised to follow-up with PCP in 1 week Pending Studies at Discharge: Yes Studies:: surgical pathology Stand-Alone Forms: My [facility] Medications and DC Order Prescriptions: New oxycodone 5 mg tablet 5 - 10 mg PO .[id number] MDD no more than 6 tabs in 24hours PRN (Reason: pain) Qty: 15 0RF Rx Instructions: take one to two tablets by mouth every 4-6 hours as needed for pain. Discharge Orders: Discharge Order (Routine); Ordered 08/24/23 Ordered By: Elaine Wong Admission Data Admit Date/Time: 08/24/23 04:16 Attending Provider: Elaine Wong Admit Provider: uJany Jarvis Primary Care Provider: Ghulam Markham Other Providers: Richmond Villanueva; Raul Grullon Coding Level of Care Code 23887 INP/OBS DISCH >30 MIN Diagnoses Abdominal pain, acute R10.9 Acute hyperglycemia R73.9
--- NOTE | 2023-08-24 19:45 | Billing Data ---
Date of Service August 24, 2023 Coding Level of Care Code 68847 INT INP/OBS CARE
== END 2023-08-24 15:52 | disposition home or self-care (01) | DRG 419 ==
LOC: ED 00:18 → SUATTDRO 04:16 → 3N 04:16